=== PATIENT | male | born 1960 | race African-American/Black ===

== ENCOUNTER 2019-02-13 23:45 | Emergency (ER) | payer MEDICAID ==
[~2019-02-13] VITALS: Ht 182.9 cm; Wt 81.0 kg
[2019-02-14 01:07] LABS: BASOPHILS % 0.3 % (0.0-2.0); EOSINOPHILS % 0.3 % (0.0-5.0); HEMATOCRIT. 49.5 % (42.0-52.0); HEMOGLOBIN. 16.7 g/dL (14.0-18.0); LYMPHOCYTES % 17.3 % (20.0-50.0); MEAN CORPUSCULAR HEMOGLOBIN 33.5 pg (28.0-32.0); MEAN CORPUSCULAR VOLUME 99.5 fL (80.0-94.0); MEAN PLATELET VOLUME 9.6 fl (7.4-10.4); MONOCYTES % 5.5 % (2.0-8.0); NEUTROPHILS % 76.6 % (40.0-76.0); PLATELET 171 x1000/uL (130-400); RED BLOOD CELL COUNT 4.98 mill/uL (4.7-6.1); RED CELL DISTRIBUTION WIDTH 14.8 % (11.6-14.6)
[2019-02-14 01:15] LABS: CHLORIDE 104 mEq/L (98-107)
[2019-02-14] MEDS ORDERED: ONDANSETRON HCL 4MG/2ML INJ IV STA (02:08)
[2019-02-14] MEDS ORDERED: MORPHINE SULFATE 4 MG/ML CPJ (NOT FOR IM USE) IV STA (02:08)
[2019-02-14] MEDS ORDERED: IOHEXOL-350 100 ML BOTTLE ONE (03:54)
[2019-02-14] MEDS ORDERED: ESMOLOL 2500MG PREMIX 250 ML IV ONE (04:54)
[2019-02-14] MEDS ORDERED: ESMOLOL 2500MG PREMIX 250 ML IV SCH (05:15)
[2019-02-14 07:03] VITALS: BP 152/92
== END 2019-02-14 07:08 | disposition short-term general hospital (02) ==
LOC: ER 23:45 → EDSEX 23:45 → EDBEDREQTM 02-14 03:53 → EDBEDREQ 02-14 03:53 → ER 02-14 07:08 → CANBEDREQ 02-14 08:06
DX: I71.01 Dissection of thoracic aorta (principal); R07.9 Chest pain, unspecified; R00.2 Palpitations; R94.31 Abnormal electrocardiogram [ECG] [EKG]; R79.1 Abnormal coagulation profile; E11.9 Type 2 diabetes mellitus without complications; I10 Essential (primary) hypertension; Z86.73 Personal history of transient ischemic attack (TIA), and cerebral infarction without residual deficits
CPT/HCPCS: 36415; 71045; 71275; 80053; 83880; 84443; 84484; 85025; 85379; 93005; 96365; 96375; 99285; J2270; J2405; J3490; Q9967